=== PATIENT | female | born 1985 | race Caucasian/White ===

== ENCOUNTER 2019-10-12 21:23 | Inpatient (IN) | payer OTHER ==
[2019-10-12] MEDS ORDERED: Misoprostol 200 MCG Tab PO PRN (22:28)
[2019-10-12] MEDS ORDERED: Ondansetron 4 MG/2 ML SDV IVPUSH PRN (22:28)
[2019-10-12] MEDS ORDERED: Sodium Chloride 0.9% 10 ML SDV IV PRN (22:28)
[2019-10-12] MEDS ORDERED: Tranexamic Acid 1,000 MG in Sodium Chloride 0.9% 100 ML IV PRN (22:28)
[2019-10-12] MEDS ORDERED: Methylergonovine 0.2 MG/1 ML Amp IM PRN (22:28)
[2019-10-12] MEDS ORDERED: Nalbuphine 10 MG/1 ML Vial IVPUSH PRN (22:28)
[2019-10-12] MEDS ORDERED: Sodium Chloride 0.9% 10 ML Syringe FLUSH PRN (22:28)
[2019-10-12] MEDS ORDERED: Butorphanol 1 MG/ML SDV IVPUSH PRN (22:28)
[2019-10-12] MEDS ORDERED: Sodium Chloride 0.9% 2.5 ML Syringe FLUSH PRN (22:28)
[2019-10-12] MEDS ORDERED: Water For Irrigation,Sterile 1,000 ML Container IRR PRN (22:28)
[2019-10-12] MEDS ORDERED: Lidocaine 1% 50 ML MDV INJECT PRN (22:28)
[2019-10-12] MEDS ORDERED: Carboprost Tromethamine 250 MCG/1 ML Amp IM PRN (22:28)
[2019-10-12] MEDS ORDERED: Oxytocin/0.9 % Sodium Chloride 30 UNIT/500 ML BAG IV SCH (22:30)
[2019-10-13] MEDS: Lactated Ringers 1,000 ML IV SCH ×3 (01:25→04:20)
--- NOTE | 2019-10-13 02:07 | PCM.LDHP ---
L&D History of Present Illness - General Date of Service: 10/13/19 Admit Problem/Dx: Patient Status Order with Admit Dx/Problem 10/12/19 21:28 Patient Status [ADT] Routine 10/12/19 22:29 Patient Status [ADT] Routine Admission Diagnosis/Problem Admission Diagnosis/Problem 10/13/19 02:00 34yo EDC 10/19/2019 Comes SROM clear 1900, O neg, RI, GBS neg. Source of Information: Patient History Limitations: Reports: No Limitations - History of Present Illness Improves with: Reports: None Worsens with: Reports: None Associated Symptoms: Reports: N - Related Data Allergies/Adverse Reactions: Allergies Allergy/AdvReac Type Severity Reaction Status Date / Time No Known Allergies Allergy Verified 04/28/15 20:51 Home Medications: Home Meds Levonorgestrel [Mirena] 1 device VAG ASDIRECTED 11/11/15 [History] Acetaminophen/HYDROcodone [[place] 325-10 MG] 1 - 2 tab PO Q4H PRN #80 tablet [Rx] traMADol HCl [Ultram] 1 - 2 bag PO Q6HR #60 tablet 11/13/15 [Rx] Past Medical History - Past Health History Medical/Surgical History: Denies Medical/Surgical History 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: Reports: Dermatologic History: Reports: Other (See Below) Other Dermatologic History: Mole removals - Past Surgical History Head Surgeries/Procedures: Reports: None Musculoskeletal Surgical History: Reports: Arthroscopic Knee Other Musculoskeletal Surgeries/Procedures:: ACL Social & Family History - Family History Family Medical History: Noncontributory - Tobacco Use Smoking Status *Q: Never Smoker Second Hand Smoke Exposure: No - Caffeine Use Caffeine Use: Reports: None - Recreational Drug Use Recreational Drug Use: No H&P Review of Systems - Review of Systems: Review Of Systems: See Below General: Reports: No Symptoms HEENT: Reports: No Symptoms Pulmonary: Reports: No Symptoms Cardiovascular: Reports: No Symptoms Gastrointestinal: Reports: No Symptoms Genitourinary: Reports: No Symptoms Musculoskeletal: Reports: No Symptoms Skin: Reports: No Symptoms Psychiatric: Reports: No Symptoms Neurological: Reports: No Symptoms Hematologic/Lymphatic: Reports: No Symptoms Immunologic: Reports: No Symptoms L&D Exam - Exam Exam: See Below - Vital Signs Weight: 78.018 kg - OB Specific Contraction Intensity: Strong Movement: Active Heart Tones: Present Heart Tones per Min: 140 Heart Rate (FHR) Variability: Moderate (6-25 bmp) Presentation: Vertex - Cobb Score Cobb Score Cervix Position: Anterior Cobb Score Consistency: Soft Cobb Score Effacement: >80% Cobb Score Dilation: 3-4 cm Cobb Score 's Station: -2 Cobb Score Total: 10 - Exam General: Alert, Oriented, Cooperative HEENT: Hearing Intact Lungs: Clear to Auscultation, Normal Respiratory Effort Cardiovascular: Regular Rate, Regular Rhythm, Normal S1, Normal S2 GI/Abdominal Exam: Soft, Non-Tender, Pelvis Stable Rectal Exam: Deferred Genitourinary: Normal external exam, Normal bimanual exam, Cervical dilitation, Cervical fluid Back Exam: Normal Inspection, Full Range of Motion Extremities: Normal Inspection, Normal Range of Motion, Non-Tender Skin: Warm, Dry, Intact Neurological: Cranial Nerves Intact, Strength Equal Bilateral, Normal Speech, Normal Tone, Sensation Intact Psychiatric: Alert, Normal Affect, Normal Mood - Patient Data Lab Results Last 24 hrs: Laboratory Results - last 24 hr 10/12/19 10/12/19 10/12/19 Range/Units 21:40 22:46 22:46 WBC 9.15 (4.0-11.0) K/uL RBC 3.96 L (4.30-5.90) M/uL Hgb 12.1 (12.0-16.0) g/dL Hct 36.2 (36.0-46.0) % MCV 91.4 (80.0-98.0) fL MCH 30.6 (27.0-32.0) pg MCHC 33.4 (31.0-37.0) g/dL RDW Std Deviation 44.9 (28.0-62.0) fl RDW Coeff of Enmanuel 14 (11.0-15.0) % Plt Count 156 (150-400) K/uL MPV 12.20 H (7.40-12.00) fL Nucleated RBC % 0.0 /100WBC Nucleated RBCs # 0 K/uL Membrane Rupture POSITIVE Blood Type O NEGATIVE Antibody Screen NEGATIVE Result Diagrams: 10/12/19 22:46 - Problem List (1) Supervision of normal IUP (intrauterine ) in primigravida SNOMED Code(s): 57079704, 333174488, 842436220, 233138192 ICD Code: Z34.00 - ENCNTR FOR SUPRVSN OF NORMAL FIRST , UNSP TRIMESTER Status: Acute Priority: High Current Visit: Yes Qualifiers: Trimester: third trimester Qualified Code(s): Z34.03 - Encounter for supervision of normal first , third trimester Problem List Initiated/Reviewed/Updated: Yes Orders Last 24hrs: Active Orders 24 hr Category Date Time Status Patient Status [ADT] Routine ADT 10/12/19 22:29 Active May Shower [RC] ASDIRECTED Care 10/12/19 22:29 Active Notify Provider [RC] PRN Care 10/12/19 22:29 Active Up ad Mary Lou [RC] ASDIRECTED Care 10/12/19 21:28 Active Up ad Mary Lou [RC] ASDIRECTED Care 10/12/19 22:29 Active Vital Signs [RC] PER UNIT ROUTINE Care 10/12/19 21:28 Active Vital Signs [RC] PER UNIT ROUTINE Care 10/12/19 22:29 Active Regular Diet [DIET] Diet 10/13/19 Breakfast Active RAPID PLASMA REAGIN, QUANT [REF] Routine Lab 10/12/19 22:46 Received UA W/O MICROSCOPIC [URIN] Routine Lab 10/12/19 21:28 Ordered Butorphanol [Stadol] Med 10/12/19 22:28 Active 1 mg IVPUSH Q1H PRN Carboprost Tromethamine [Hemabate DS] Med 10/12/19 22:28 Active 250 mcg IM ASDIRECTED PRN Lactated Ringers [Ringers, Lactated] 1,000 ml Med 10/12/19 22:30 Active IV ASDIRECTED Lidocaine 1% [Xylocaine 1%] Med 10/12/19 22:28 Active 50 ml INJECT ONETIME PRN Methylergonovine [Methergine] Med 10/12/19 22:28 Active 0.2 mg IM ASDIRECTED PRN Nalbuphine [Nubain] Med 10/12/19 22:28 Active 10 mg IVPUSH Q1H PRN Ondansetron [Zofran] Med 10/12/19 22:28 Active 4 mg IVPUSH Q4H PRN Oxytocin/0.9 % Sodium Chloride [Oxytocin 30 Unit/500 ML Med 10/12/19 22:30 Active -NS] 30 unit in 500 ml IV TITRATE Sodium Chloride 0.9% [Normal Saline] Med 10/12/19 22:28 Active 10 ml IV ASDIRECTED PRN Sodium Chloride 0.9% [Saline Flush] Med 10/12/19 22:28 Active 10 ml FLUSH ASDIRECTED PRN Sodium Chloride 0.9% [Saline Flush] Med 10/12/19 22:28 Active 2.5 ml FLUSH ASDIRECTED PRN Tranexamic Acid [Cyklokapron] 1,000 mg Med 10/12/19 22:28 Active Sodium Chloride 0.9% [Normal Saline] 100 ml IV ONETIME Water For Irrigation,Sterile [Sterile Water for Med 10/12/19 22:28 Active Irrigation] 1,000 ml IRR ASDIRECTED PRN miSOPROStol [Cytotec] Med 10/12/19 22:28 Active 200 mcg PO ONETIME PRN Scalp Electrode [WOMSER] Per Unit Routine Oth 10/12/19 22:29 Ordered Peripheral IV Insertion Adult [OM.PC] Routine Oth 10/12/19 22:29 Ordered Resuscitation Status Routine Resus Stat 10/12/19 21:28 Ordered Medication Orders Butorphanol Tartrate (Stadol) 1 mg IVPUSH Q1H PRN PRN Reason: Pain Carboprost Tromethamine (Hemabate Ds) 250 mcg IM ASDIRECTED PRN PRN Reason: Post Hemorrhage Tranexamic Acid 1,000 mg/ (Sodium Chloride) 110 mls @ 660 mls/hr IV ONETIME PRN PRN Reason: Bleeding Lactated Ringer's (Ringers, Lactated) 1,000 mls @ 150 mls/hr IV ASDIRECTED MELISSA Last Admin: 10/13/19 01:25 Dose: 999 mls/hr Oxytocin/Sodium Chloride (Oxytocin 30 Unit/500 Ml-Ns) 30 unit in 500 mls @ 500 mls/hr IV TITRATE MELISSA Lidocaine HCl (Xylocaine 1%) 50 ml INJECT ONETIME PRN PRN Reason: Laceration repair Methylergonovine Maleate (Methergine) 0.2 mg IM ASDIRECTED PRN PRN Reason: Post Hemorrhage Misoprostol (Cytotec) 200 mcg PO ONETIME PRN PRN Reason: Post Hemorrhage Nalbuphine HCl (Nubain) 10 mg IVPUSH Q1H PRN PRN Reason: Pain (severe 7-10) Ondansetron HCl (Zofran) 4 mg IVPUSH Q4H PRN PRN Reason: Nausea/Vomiting Sodium Chloride (Saline Flush) 10 ml FLUSH ASDIRECTED PRN PRN Reason: Keep Vein Open Sodium Chloride (Saline Flush) 2.5 ml FLUSH ASDIRECTED PRN PRN Reason: Keep Vein Open Sodium Chloride (Normal Saline) 10 ml IV ASDIRECTED PRN PRN Reason: IV Use Sterile Water (Sterile Water For Irrigation) 1,000 ml IRR ASDIRECTED PRN PRN Reason: delivery Assessment/Plan Comment:: Labor A: 34yo EDC 10/19/2019 Comes SROM clear 1900, O neg, RI, GBS neg. P: Admit, epidural now, anticipate , Dr Aaron lackey
[2019-10-13] MEDS ORDERED: fentaNYL 100 MCG/2 ML SDV ONE ×2 (02:19→09:46)
[2019-10-13] MEDS ORDERED: Ropivacaine HCl/PF 100 ML ONE ×2 (02:19→09:46)
[2019-10-13] MEDS ORDERED: Terbutaline 1 MG/ML SDV SUBCUT PRN (02:46)
[2019-10-13] MEDS ORDERED: Misoprostol 25 MCG (1/4 of 100 MCG) Tab VAG PRN ×2 (02:46)
--- NOTE | 2019-10-13 02:53 | PCM.PREANE ---
Preanesthetic Assessment - Anesthesia/Transfusion/Family Hx Anesthesia History: No Prior Anesthesia Transfusion History: No Prior Transfusion(s) - Physical Assessment NPO Status Date: 10/13/19 NPO Status Time: 00:05 Height: 1.6 m Weight: 78.018 kg ASA Class: 1 - Lab Values: Laboratory Last Values WBC 9.15 K/uL (4.0-11.0) 10/12/19 22:46 RBC 3.96 M/uL (4.30-5.90) L 10/12/19 22:46 Hgb 12.1 g/dL (12.0-16.0) 10/12/19 22:46 Hct 36.2 % (36.0-46.0) 10/12/19 22:46 MCV 91.4 fL (80.0-98.0) 10/12/19 22:46 MCH 30.6 pg (27.0-32.0) 10/12/19 22:46 MCHC 33.4 g/dL (31.0-37.0) 10/12/19 22:46 RDW Std Deviation 44.9 fl (28.0-62.0) 10/12/19 22:46 RDW Coeff of Enmanuel 14 % (11.0-15.0) 10/12/19 22:46 Plt Count 156 K/uL (150-400) 10/12/19 22:46 MPV 12.20 fL (7.40-12.00) H 10/12/19 22:46 Nucleated RBC % 0.0 /100WBC 10/12/19 22:46 Nucleated RBCs # 0 K/uL 10/12/19 22:46 Membrane Rupture POSITIVE 10/12/19 21:40 Blood Type O NEGATIVE 10/12/19 22:46 Antibody Screen NEGATIVE 10/12/19 22:46 - Allergies Allergies/Adverse Reactions: Allergies Allergy/AdvReac Type Severity Reaction Status Date / Time No Known Allergies Allergy Verified 04/28/15 20:51 - Acknowledgements Anesthesia Type Planned: Epidural Pt an Appropriate Candidate for the Planned Anesthesia: Yes Alternatives and Risks of Anesthesia Discussed w Pt/Guardian: Yes Pt/Guardian Understands and Agrees with Anesthesia Plan: Yes PreAnesthesia Questionnaire - Past Health History Medical/Surgical History: Denies Medical/Surgical History HEENT History: Gastrointestinal History: Reports: GERD [employer]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[employer] History: Reports: Dermatologic History: Reports: Other (See Below) Other Dermatologic History: Mole removals - Past Surgical History Head Surgeries/Procedures: Reports: None Musculoskeletal Surgical History: Reports: Arthroscopic Knee Other Musculoskeletal Surgeries/Procedures:: ACL - SUBSTANCE USE Smoking Status *Q: Never Smoker Second Hand Smoke Exposure: No Recreational Drug Use History: No - HOME MEDS Home Medications: Home Meds Levonorgestrel [Mirena] 1 device VAG ASDIRECTED 11/11/15 [History] Acetaminophen/HYDROcodone [[place] 325-10 MG] 1 - 2 tab PO Q4H PRN #80 tablet [Rx] traMADol HCl [Ultram] 1 - 2 bag PO Q6HR #60 tablet 11/13/15 [Rx] - CURRENT (IN HOUSE) MEDS Current Meds: Current Medications Butorphanol Tartrate (Stadol) 1 mg IVPUSH Q1H PRN PRN Reason: Pain Carboprost Tromethamine (Hemabate Ds) 250 mcg IM ASDIRECTED PRN PRN Reason: Post Hemorrhage Tranexamic Acid 1,000 mg/ (Sodium Chloride) 110 mls @ 660 mls/hr IV ONETIME PRN PRN Reason: Bleeding Lactated Ringer's (Ringers, Lactated) 1,000 mls @ 150 mls/hr IV ASDIRECTED MELISSA Last Admin: 10/13/19 02:20 Dose: 999 mls/hr Oxytocin/Sodium Chloride (Oxytocin 30 Unit/500 Ml-Ns) 30 unit in 500 mls @ 500 mls/hr IV TITRATE MELISSA Oxytocin/Sodium Chloride (Oxytocin 30 Unit/500 Ml-Ns) 30 unit in 500 mls @ 2 mls/hr IV TITRATE MELISSA; Protocol Lidocaine HCl (Xylocaine 1%) 50 ml INJECT ONETIME PRN PRN Reason: Laceration repair Methylergonovine Maleate (Methergine) 0.2 mg IM ASDIRECTED PRN PRN Reason: Post Hemorrhage Misoprostol (Cytotec) 200 mcg PO ONETIME PRN PRN Reason: Post Hemorrhage Misoprostol (Cytotec) 25 mcg VAG ONETIME PRN PRN Reason: Cervical Ripening Misoprostol (Cytotec) 25 mcg VAG Q4H PRN PRN Reason: Cervical Ripening Nalbuphine HCl (Nubain) 10 mg IVPUSH Q1H PRN PRN Reason: Pain (severe 7-10) Ondansetron HCl (Zofran) 4 mg IVPUSH Q4H PRN PRN Reason: Nausea/Vomiting Sodium Chloride (Saline Flush) 10 ml FLUSH ASDIRECTED PRN PRN Reason: Keep Vein Open Sodium Chloride (Saline Flush) 2.5 ml FLUSH ASDIRECTED PRN PRN Reason: Keep Vein Open Sodium Chloride (Normal Saline) 10 ml IV ASDIRECTED PRN PRN Reason: IV Use Sterile Water (Sterile Water For Irrigation) 1,000 ml IRR ASDIRECTED PRN PRN Reason: delivery Terbutaline Sulfate (Brethine) 0.25 mg SUBCUT ASDIRECTED PRN PRN Reason: Tacysystole Discontinued Medications Fentanyl (Sublimaze) Confirm Administered Dose 100 mcg .ROUTE .STK-MED ONE Stop: 10/13/19 02:20 Ropivacaine (Naropin 0.2%) Confirm Administered Dose 100 mls @ as directed .ROUTE .STK-MED ONE Stop: 10/13/19 02:20
--- NOTE | 2019-10-13 02:59 | PCM.PRNOTE ---
- Free Text/Narrative Note: Anesthesia Note: Patient request epidural for labor and delivery. Patient placed in sitting position, L3-L4 midline approach. Chloraprep scrub to lumbar area. Fenestrated drape applied. Epidural space easily achieved using JESSICA technique. JESSICA 4cm and cath thread to 5cm with easy and taped to skin at 9cm with clear sterile adhesive dressing. Patient tolerated well. 0235: Test dose of 3mL 1.5% Lidocaine with epi negative. 0239: Loading dose of 10mL of 0.2% ropvi with 1mcg/mL given in divided doses. 0244: Epidural pump started, same solution at 8mL per hour, 6mL demand bolus every 20mins. Sergio Green CRNA & Michelle Boo, SRNA
[2019-10-13] MEDS ORDERED: Oxytocin/0.9 % Sodium Chloride 30 UNIT/500 ML BAG IV SCH (03:00)
--- NOTE | 2019-10-13 10:14 | PCM.PRNOTE ---
- Free Text/Narrative Note: Anes Note Epidural infusion is completed. A new 100 cc bag of 0.2% ropivicaine with 1 mcg cc fentanyl added was placed. Rate is 8 cc hr with 6 cc q 20 min prn bolus. Guzman reports excelletn analgesia. Time with patient [phone] Sergio Green CRNA
--- NOTE | 2019-10-13 12:15 | PCM.DEL ---
L & D Note - General Info Date of Service: 10/13/19 Mother's Due Date: 10/19/19 - Delivery Note Labor: Spontaneous, Augmented by ARM Delivery Outcome: Livebirth Delivery Method: Spontaneous Vaginal Delivery-Single Delivery Mode: Spontaneous Presentation: Vertex Nuchal Cord: None Anesthesia Type: Epidural Amniotic Fluid Description: Clear Episiotomy Type: None Laceration: None Placenta: Intact, Spontaneous Cord: 3 Vessels Estimated Blood Loss: 100 Resuscitation Needed: No Score 1 min: 8 Score 5 min: 9 Second Stage Interventions: Reports: Pushing, Pulls Own Legs Back Delivery Comments (Free Text/Narrative):: 34yo G1 39 1/7wks follow by me in the clinic. of viable male, head delivered with good pushing, shoulders and body followed easily. Infant placed on mothers abdomen with RN at . Spont cry. Delayed cord clamping, Pitocin to IVF. Cord clamped and cut by Grandma. Cord blood collected. Placenta delivered grossly intact. Bimanual normal. Inspection noted intact perineum. EBL 100cc. APGARS 8/9, Wt: 8lb 10oz. Mother and baby left in stable condition for recovery. Induction Criteria - Augmentation Estimated Pelvis: Reports: Adequate Weight Estimated:: Reports: AGA Reassuring Monitoring Strip: Yes Absence of Tachy Systole: Yes - General Info Date of Service: 10/13/19 Admission Dx/Problem (Free Text): Patient Status Order with Admit Dx/Problem 10/12/19 21:28 Patient Status [ADT] Routine 10/12/19 22:29 Patient Status [ADT] Routine Admission Diagnosis/Problem Admission Diagnosis/Problem 10/13/19 02:00 34yo EDC 10/19/2019 Comes SROM clear 1900, O neg, RI, GBS neg. Functional Status: Reports: Pain Controlled - Review of Systems General: Reports: No Symptoms HEENT: Reports: No Symptoms Pulmonary: Reports: No Symptoms Cardiovascular: Reports: No Symptoms Gastrointestinal: Reports: Nausea Genitourinary: Reports: No Symptoms Musculoskeletal: Reports: No Symptoms Skin: Reports: No Symptoms Neurological: Reports: No Symptoms Psychiatric: Reports: No Symptoms - Patient Data Weight - Most Recent: 78.018 kg Lab Results Last 24 Hours: Laboratory Results - last 24 hr 10/12/19 10/12/19 10/12/19 Range/Units 21:40 22:46 22:46 WBC 9.15 (4.0-11.0) K/uL RBC 3.96 L (4.30-5.90) M/uL Hgb 12.1 (12.0-16.0) g/dL Hct 36.2 (36.0-46.0) % MCV 91.4 (80.0-98.0) fL MCH 30.6 (27.0-32.0) pg MCHC 33.4 (31.0-37.0) g/dL RDW Std Deviation 44.9 (28.0-62.0) fl RDW Coeff of Enmanuel 14 (11.0-15.0) % Plt Count 156 (150-400) K/uL MPV 12.20 H (7.40-12.00) fL Nucleated RBC % 0.0 /100WBC Nucleated RBCs # 0 K/uL Membrane Rupture POSITIVE Blood Type O NEGATIVE Antibody Screen NEGATIVE Med Orders - Current: Current Medications Butorphanol Tartrate (Stadol) 1 mg IVPUSH Q1H PRN PRN Reason: Pain Carboprost Tromethamine (Hemabate Ds) 250 mcg IM ASDIRECTED PRN PRN Reason: Post Hemorrhage Tranexamic Acid 1,000 mg/ (Sodium Chloride) 110 mls @ 660 mls/hr IV ONETIME PRN PRN Reason: Bleeding Lactated Ringer's (Ringers, Lactated) 1,000 mls @ 150 mls/hr IV ASDIRECTED MELISSA Last Admin: 10/13/19 04:20 Dose: 125 mls/hr Oxytocin/Sodium Chloride (Oxytocin 30 Unit/500 Ml-Ns) 30 unit in 500 mls @ 500 mls/hr IV TITRATE MELISSA Oxytocin/Sodium Chloride (Oxytocin 30 Unit/500 Ml-Ns) 30 unit in 500 mls @ 2 mls/hr IV TITRATE MELISSA; Protocol Last Titration: 10/13/19 09:45 Dose: 8 munits/min, 8 mls/hr Lidocaine HCl (Xylocaine 1%) 50 ml INJECT ONETIME PRN PRN Reason: Laceration repair Methylergonovine Maleate (Methergine) 0.2 mg IM ASDIRECTED PRN PRN Reason: Post Hemorrhage Misoprostol (Cytotec) 200 mcg PO ONETIME PRN PRN Reason: Post Hemorrhage Misoprostol (Cytotec) 25 mcg VAG ONETIME PRN PRN Reason: Cervical Ripening Misoprostol (Cytotec) 25 mcg VAG Q4H PRN PRN Reason: Cervical Ripening Nalbuphine HCl (Nubain) 10 mg IVPUSH Q1H PRN PRN Reason: Pain (severe 7-10) Ondansetron HCl (Zofran) 4 mg IVPUSH Q4H PRN PRN Reason: Nausea/Vomiting Sodium Chloride (Saline Flush) 10 ml FLUSH ASDIRECTED PRN PRN Reason: Keep Vein Open Sodium Chloride (Saline Flush) 2.5 ml FLUSH ASDIRECTED PRN PRN Reason: Keep Vein Open Sodium Chloride (Normal Saline) 10 ml IV ASDIRECTED PRN PRN Reason: IV Use Sterile Water (Sterile Water For Irrigation) 1,000 ml IRR ASDIRECTED PRN PRN Reason: delivery Terbutaline Sulfate (Brethine) 0.25 mg SUBCUT ASDIRECTED PRN PRN Reason: Tacysystole Discontinued Medications Fentanyl (Sublimaze) Confirm Administered Dose 100 mcg .ROUTE .STK-MED ONE Stop: 10/13/19 02:20 Fentanyl (Sublimaze) Confirm Administered Dose 100 mcg .ROUTE .STK-MED ONE Stop: 10/13/19 09:47 Ropivacaine (Naropin 0.2%) Confirm Administered Dose 100 mls @ as directed .ROUTE .STK-MED ONE Stop: 10/13/19 02:20 Ropivacaine (Naropin 0.2%) Confirm Administered Dose 100 mls @ as directed .ROUTE .STK-MED ONE Stop: 10/13/19 09:47 - Exam General: Alert, Oriented, Cooperative, No Acute Distress Lungs: Normal Respiratory Effort GI/Abdominal Exam: Soft, Non-Tender, Pelvis Stable (Female) Exam: Normal External Exam, Normal Bimanual Exam, Vaginal Bleeding. No: Vaginal Lesions, Vaginal Tears Back Exam: Normal Inspection Extremities: Normal Inspection, Non-Tender, No Pedal Edema Skin: Warm, Dry, Intact Neurological: No New Focal Deficit, Normal Speech, Normal Tone, Sensation Intact Psy/Mental Status: Alert, Normal Affect, Normal Mood - Problem List & Annotations (1) Supervision of normal IUP (intrauterine ) in primigravida SNOMED Code(s): 99802188, 372595464, 215838073, 884987681 Code(s): Z34.00 - ENCNTR FOR SUPRVSN OF NORMAL FIRST , UNSP TRIMESTER Status: Acute Priority: High Current Visit: Yes Qualifiers: Trimester: third trimester Qualified Code(s): Z34.03 - Encounter for supervision of normal first , third trimester (2) (normal spontaneous vaginal delivery) SNOMED Code(s): 19994730, 889824234 Code(s): O80 - ENCOUNTER FOR FULL-TERM UNCOMPLICATED DELIVERY Status: Acute Priority: High Current Visit: Yes - Problem List Review Problem List Initiated/Reviewed/Updated: Yes - My Orders Last 24 Hours: My Active Orders 10/12/19 21:28 Up ad Mary Lou [RC] ASDIRECTED Vital Signs [RC] PER UNIT ROUTINE UA W/O MICROSCOPIC [URIN] Routine Resuscitation Status Routine 10/12/19 22:28 Butorphanol [Stadol] 1 mg IVPUSH Q1H PRN Carboprost Tromethamine [Hemabate DS] 250 mcg IM ASDIRECTED PRN Lidocaine 1% [Xylocaine 1%] 50 ml INJECT ONETIME PRN Methylergonovine [Methergine] 0.2 mg IM ASDIRECTED PRN Nalbuphine [Nubain] 10 mg IVPUSH Q1H PRN Ondansetron [Zofran] 4 mg IVPUSH Q4H PRN Sodium Chloride 0.9% [Normal Saline] 10 ml IV ASDIRECTED PRN Sodium Chloride 0.9% [Saline Flush] 10 ml FLUSH ASDIRECTED PRN Sodium Chloride 0.9% [Saline Flush] 2.5 ml FLUSH ASDIRECTED PRN Tranexamic Acid [Cyklokapron] 1,000 mg Sodium Chloride 0.9% [Normal Saline] 100 ml IV ONETIME Water For Irrigation,Sterile [Sterile Water for Irrigation] 1,000 ml IRR ASDIRECTED PRN miSOPROStol [Cytotec] 200 mcg PO ONETIME PRN 10/12/19 22:29 Patient Status [ADT] Routine May Shower [RC] ASDIRECTED Notify Provider [RC] PRN Up ad Mary Lou [RC] ASDIRECTED Vital Signs [RC] PER UNIT ROUTINE Scalp Electrode [WOMSER] Per Unit Routine Peripheral IV Insertion Adult [OM.PC] Routine 10/12/19 22:30 Lactated Ringers [Ringers, Lactated] 1,000 ml IV ASDIRECTED Oxytocin/0.9 % Sodium Chloride [Oxytocin 30 Unit/500 ML-NS] 30 unit in 500 ml IV TITRATE 10/12/19 22:46 RAPID PLASMA REAGIN, QUANT [REF] Routine 10/13/19 02:46 Bedrest Bathroom Privileges [RC] ASDIRECTED Communication Order [RC] ASDIRECTED Communication Order [RC] ASDIRECTED Communication Order [RC] ASDIRECTED Notify Provider [RC] PRN Notify Provider [RC] PRN Notify Provider [RC] STAT Oxygen Therapy [RC] ASDIRECTED Vital Signs [RC] PER UNIT ROUTINE Terbutaline [Brethine] 0.25 mg SUBCUT ASDIRECTED PRN miSOPROStol [Cytotec] 25 mcg VAG ONETIME PRN miSOPROStol [Cytotec] 25 mcg VAG Q4H PRN 10/13/19 03:00 Oxytocin/0.9 % Sodium Chloride [Oxytocin 30 Unit/500 ML-NS] 30 unit in 500 ml IV TITRATE Medication Administration Instruction [OM.PC] Q3H 10/13/19 Breakfast Regular Diet [DIET] - Plan Plan:: Labor A: 34yo EDC 10/19/2019 Comes SROM clear 1900, O neg, RI, GBS neg. P: Admit, epidural now, anticipate , Dr Walker updated Delivery A: of viable male, APGARS 8/9, Wt: 8lb 10oz, Intact perineum, EBL 100cc, Stable P: Routine pp plan of care
[2019-10-13] MEDS ORDERED: Witch Hazel Medicated Pads 40/Jar TOP PRN (12:19)
[2019-10-13] MEDS ORDERED: Benzocaine/Menthol 20%-0.5% Spray 78 GM Cannister TOP PRN (12:19)
[2019-10-13] MEDS ORDERED: Acetaminophen 500 MG Tab PO PRN ×2 (12:19)
[2019-10-13] MEDS ORDERED: Docusate Sodium 100 MG Cap PO PRN (12:19)
[2019-10-13] MEDS ORDERED: Lanolin 100% Cream 7 GM Tube TOP PRN (12:19)
[2019-10-13] MEDS ORDERED: Bisacodyl 10 MG Supp RECTAL PRN (12:19)
[2019-10-13] MEDS ORDERED: Ibuprofen 800 MG Tab PO PRN (12:19)
[2019-10-13] MEDS ORDERED: oxyCODONE 5 MG Tab PO PRN (12:19)
[2019-10-13] MEDS ORDERED: Ibuprofen 400 MG Tab PO PRN (12:19)
[2019-10-13 20:15] VITALS: BP 126/75; PULSE 83
--- NOTE | 2019-10-14 09:48 | PCM.DCSUM1 ---
Discharge Summary - Hospital Course Free Text/Narrative:: Discharge home with infant. Follow up in 6 weeks for . Diagnosis: Stroke: No Modified Kade Scale: No Symptoms at All Modified Kade Scale Score: 0 - Discharge Data Discharge Date: 10/14/19 Discharge Disposition: Home, Self-Care 01 Condition: Good - Referral to Home Health Primary Care Physician: Israel Walker MD - Discharge Diagnosis/Problem(s) (1) Supervision of normal IUP (intrauterine ) in primigravida SNOMED Code(s): 21417537, 756228322, 230983854, 570306485 ICD Code: Z34.00 - ENCNTR FOR SUPRVSN OF NORMAL FIRST , UNSP TRIMESTER Status: Acute Priority: High Current Visit: Yes Qualifiers: Trimester: third trimester Qualified Code(s): Z34.03 - Encounter for supervision of normal first , third trimester (2) (normal spontaneous vaginal delivery) SNOMED Code(s): 56430503, 028384704 ICD Code: O80 - ENCOUNTER FOR FULL-TERM UNCOMPLICATED DELIVERY Status: Acute Priority: High Current Visit: Yes - Patient Instructions Diet: Usual Diet as Tolerated Activity: As Tolerated, No Strenuous Activities, Rest and Relax Today Driving: May Drive Today Showering/Bathing: May Shower Notify Provider of: Fever, Increased Pain, Swelling and Redness, Nausea and/or Vomiting - Discharge Plan *PRESCRIPTION DRUG MONITORING PROGRAM REVIEWED*: Not Applicable *COPY OF PRESCRIPTION DRUG MONITORING REPORT IN PATIENT NOMI: Not Applicable Home Medications: Home Meds Levonorgestrel [Mirena] 1 device VAG ASDIRECTED 11/11/15 [History] Acetaminophen/HYDROcodone [[place] 325-10 MG] 1 - 2 tab PO Q4H PRN #80 tablet [Rx] traMADol HCl [Ultram] 1 - 2 bag PO Q6HR #60 tablet 11/13/15 [Rx] Oxygen Therapy Mode: Room Air Referrals: [facility] [Outside] Nancy Eason CNM [Mid-] - 11/24/19 1:30 pm (Follow up appt with Nancy 11/24 at 1:30 pm ) - Discharge Summary/Plan Comment DC Time >30 min.: Yes - General Info Date of Service: 10/14/19 Admission Dx/Problem (Free Text: Patient Status Order with Admit Dx/Problem 10/12/19 21:28 Patient Status [ADT] Routine 10/12/19 22:29 Patient Status [ADT] Routine Admission Diagnosis/Problem Admission Diagnosis/Problem 10/13/19 02:00 34yo EDC 10/19/2019 Comes SROM clear 1900, O neg, RI, GBS neg. Functional Status: Reports: Pain Controlled, Tolerating Diet, Ambulating, Urinating - Review of Systems General: Reports: No Symptoms HEENT: Reports: No Symptoms Pulmonary: Reports: No Symptoms Cardiovascular: Reports: No Symptoms Gastrointestinal: Reports: No Symptoms Genitourinary: Reports: No Symptoms Musculoskeletal: Reports: No Symptoms Skin: Reports: No Symptoms Neurological: Reports: No Symptoms Psychiatric: Reports: No Symptoms - Patient Data Vitals - Most Recent: Last Vital Signs Temp 36.7 C 10/13/19 20:14 Pulse 83 10/13/19 20:14 Resp 18 10/13/19 20:14 BP 126/75 10/13/19 20:14 Pulse Ox 97 10/13/19 20:14 Weight - Most Recent: 78.018 kg I&O - Last 24 hours: Intake & Output 10/13/19 10/14/19 10/14/19 22:59 06:59 14:59 Intake Total 2 Balance 2 Lab Results - Last 24 hrs: Laboratory Results - last 24 hr 10/13/19 Range/Units 13:35 Screen NEGATIVE (NEGATIVE) RhIG Candidate? YES Rhogam Indicated YES, BABY RH POS H Med Orders - Current: Current Medications Acetaminophen (Tylenol Extra Strength) 500 mg PO Q4H PRN PRN Reason: Pain Acetaminophen (Tylenol Extra Strength) 1,000 mg PO Q4H PRN PRN Reason: Pain Benzocaine/Menthol (Dermoplast Pain Relief 20%-0.5% Beulah) 78 gm TOP ASDIRECTED PRN PRN Reason: Perineal Comfort Measure Bisacodyl (Dulcolax) 10 mg RECTAL ONETIME PRN PRN Reason: Constipation Docusate Sodium (Colace) 100 mg PO BID PRN PRN Reason: Constipation Last Admin: 10/13/19 21:10 Dose: 100 mg Emollient Ointment (Lansinoh Hpa) 0 gm TOP ASDIRECTED PRN PRN Reason: Sore Nipples Ibuprofen (Motrin) 400 mg PO Q4H PRN PRN Reason: Pain Ibuprofen (Motrin) 800 mg PO Q6H PRN PRN Reason: Pain Last Admin: 10/13/19 21:10 Dose: 800 mg Oxycodone HCl (Oxycodone) 5 mg PO Q2H PRN PRN Reason: Pain Witch Renee (Tucks) 1 pad TOP ASDIRECTED PRN PRN Reason: comfort care Discontinued Medications Butorphanol Tartrate (Stadol) 1 mg IVPUSH Q1H PRN PRN Reason: Pain Carboprost Tromethamine (Hemabate Ds) 250 mcg IM ASDIRECTED PRN PRN Reason: Post Hemorrhage Fentanyl (Sublimaze) Confirm Administered Dose 100 mcg .ROUTE .STK-MED ONE Stop: 10/13/19 02:20 Fentanyl (Sublimaze) Confirm Administered Dose 100 mcg .ROUTE .STK-MED ONE Stop: 10/13/19 09:47 Tranexamic Acid 1,000 mg/ (Sodium Chloride) 110 mls @ 660 mls/hr IV ONETIME PRN PRN Reason: Bleeding Lactated Ringer's (Ringers, Lactated) 1,000 mls @ 150 mls/hr IV ASDIRECTED MELISSA Last Admin: 10/13/19 04:20 Dose: 125 mls/hr Oxytocin/Sodium Chloride (Oxytocin 30 Unit/500 Ml-Ns) 30 unit in 500 mls @ 500 mls/hr IV TITRATE MELISSA Ropivacaine (Naropin 0.2%) Confirm Administered Dose 100 mls @ as directed .ROUTE .STK-MED ONE Stop: 10/13/19 02:20 Oxytocin/Sodium Chloride (Oxytocin 30 Unit/500 Ml-Ns) 30 unit in 500 mls @ 2 mls/hr IV TITRATE MELISSA; Protocol Last Titration: 10/13/19 11:48 Dose: 999 munits/min, 999 mls/hr Ropivacaine (Naropin 0.2%) Confirm Administered Dose 100 mls @ as directed .ROUTE .STK-MED ONE Stop: 10/13/19 09:47 Lidocaine HCl (Xylocaine 1%) 50 ml INJECT ONETIME PRN PRN Reason: Laceration repair Methylergonovine Maleate (Methergine) 0.2 mg IM ASDIRECTED PRN PRN Reason: Post Hemorrhage Misoprostol (Cytotec) 200 mcg PO ONETIME PRN PRN Reason: Post Hemorrhage Misoprostol (Cytotec) 25 mcg VAG ONETIME PRN PRN Reason: Cervical Ripening Misoprostol (Cytotec) 25 mcg VAG Q4H PRN PRN Reason: Cervical Ripening Nalbuphine HCl (Nubain) 10 mg IVPUSH Q1H PRN PRN Reason: Pain (severe 7-10) Ondansetron HCl (Zofran) 4 mg IVPUSH Q4H PRN PRN Reason: Nausea/Vomiting Sodium Chloride (Saline Flush) 10 ml FLUSH ASDIRECTED PRN PRN Reason: Keep Vein Open Sodium Chloride (Saline Flush) 2.5 ml FLUSH ASDIRECTED PRN PRN Reason: Keep Vein Open Sodium Chloride (Normal Saline) 10 ml IV ASDIRECTED PRN PRN Reason: IV Use Sterile Water (Sterile Water For Irrigation) 1,000 ml IRR ASDIRECTED PRN PRN Reason: delivery Terbutaline Sulfate (Brethine) 0.25 mg SUBCUT ASDIRECTED PRN PRN Reason: Tacysystole - Exam General: Reports: Alert, Oriented, Cooperative, No Acute Distress Lungs: Reports: Normal Respiratory Effort GI/Abdominal Exam: Soft, Non-Tender, Pelvis Stable (Female) Exam: Deferred, Vaginal Bleeding Rectal (Female) Exam: Deferred Back Exam: Reports: Normal Inspection, Full Range of Motion Extremities: Normal Inspection, Non-Tender, No Pedal Edema Skin: Reports: Warm, Dry, Intact Neurological: Reports: No New Focal Deficit, Normal Speech, Normal Tone, Strength Equal Bilateral, Sensation Intact Psy/Mental Status: Reports: Alert, Normal Affect, Normal Mood
--- NOTE | 2019-10-14 09:55 | PCM48HPAN ---
Post Anesthesia Note - EVALUATION WITHIN 48HRS OF ANESTHETIC Vital Signs in Normal Range: Yes Patient Participated in Evaluation: Yes Respiratory Function Stable: Yes Airway Patent: Yes Cardiovascular Function Stable: Yes Hydration Status Stable: Yes Pain Control Satisfactory: Yes Nausea and Vomiting Control Satisfactory: Yes Mental Status Recovered: Yes Vital Signs: Last Vital Signs Temp 36.7 C 10/13/19 20:14 Pulse 83 10/13/19 20:14 Resp 18 10/13/19 20:14 BP 126/75 10/13/19 20:14 Pulse Ox 97 10/13/19 20:14 - COMMENTS/OBSERVATIONS Free Text/Narrative:: No complaints related to anesthesia.
== END 2019-10-14 13:10 | disposition home or self-care (01) | DRG 807 ==
LOC: MW.OBCHECK 21:23 → MW.OB 21:30 → MW.OBCHECK 22:29 → MW.OB 22:29 → OBSVTOIN 10-13 11:47 → MW.OB 10-13 17:22 → UNDODISOB 10-14 13:10
PROVIDERS: ADMIT Obstetrics & Gynecology; ATTEND Advanced Practice Midwife
PROC: 10E0XZZ Delivery of Products of Conception, External Approach (ICD-10-PCS; principal; 2019-10-13)
PROC: 6A550ZT Pheresis of Cord Blood Stem Cells, Single (ICD-10-PCS; principal; 2019-10-13)
PROC: 10907ZC Drainage of Amniotic Fluid, Therapeutic from Products of Conception, Via Natural or Artificial Opening (ICD-10-PCS; principal; 2019-10-13)
PROC: 3E0R3BZ Introduction of Anesthetic Agent into Spinal Canal, Percutaneous Approach (ICD-10-PCS; 2019-10-13)
PROC: 00HU33Z Insertion of Infusion Device into Spinal Canal, Percutaneous Approach (ICD-10-PCS; 2019-10-13)
DX: O80 Encounter for full-term uncomplicated delivery (principal); Z37.0 Single live birth; Z3A.39 39 weeks gestation of pregnancy
CPT/HCPCS: 01967; 36415; 51702; 59025; 59409; 84112; 85027; 85460; 86593; 86850; 86900; 86901; A9270-GY; J2590; J2792; J2795; J3010; J7120

== ENCOUNTER 2019-11-12 20:32 | Emergency (ER) | payer OTHER ==
--- NOTE | 2019-11-12 21:07 | EDM.PDOC ---
ED HPI GENERAL MEDICAL PROBLEM - General Chief Complaint: Skin Complaint Stated Complaint: RASH Time Seen by Provider: 11/12/19 20:52 - History of Present Illness INITIAL COMMENTS - FREE TEXT/NARRATIVE: HISTORY AND PHYSICAL: History of present illness: She is a 34-year-old female who is breast-feeding her 4-week-old infant and presents with a history of seeing Nancy Eason in the clinic and being placed on antibiotics, the name of which she does not recall but which she is taking twice a day, for mastitis and she is concerned that it is worsening. The patient has taken 5 doses of antibiotics which she takes twice a day and she says that tonight she noticed some bubbling of the skin in the medial aspect of her breast and went on the Internet and saw pictures and was very worried so came here to the ED. She says that her milk flow is good from that breast and she has no systemic complaints of fever chills chest pain shortness of breath vomiting or abdominal issues. She says she has just been using [id number] medication for pain and she says the pain seems somewhat worse this evening. She says that the area of redness that was present in the clinic when she was seen by the provider seems to be worsening as well but she is more concerned about the bubbling and skin changes that she seeing and is worried that she is going to start draining fluid. Absolutely has not had any fever at home Review of systems: As per history of present illness and below otherwise all systems reviewed and negative. Past medical history: As per history of present illness and as reviewed below otherwise noncontributory. Surgical history: As per history of present illness and as reviewed below otherwise noncontributory. Social history: No reported history of drug or alcohol abuse. Family history: As per history of present illness and as reviewed below otherwise noncontributory. Physical exam: General: Well-developed well-nourished female who is nontoxic and vital signs are noted by me HEENT: Atraumatic, normocephalic, negative for conjunctival pallor or scleral icterus, mucous membranes moist, throat clear, neck supple, nontender, trachea midline. Lungs: Clear to auscultation, breath sounds equal bilaterally, chest nontender. Left breast: There is an ill-defined area of erythema that originates at the 6: 30 position on the breast extending up to the 11 PM position and width in this at the center of proximally 9:00 there is a 3 x 3 firm indurated area with some superficial skin changes and excoriations seen but no drainage and there is no fluctuance of this area. There is mild tenderness with palpation of the entire region but there is no nipple drainage or discharge. There is no axillary or supraclavicular lymphadenopathy. Heart: S1S2, regular rate and rhythm no overt murmurs Abdomen: Soft, nondistended, nontender. NAbS Pelvis: Stable nontender. Genitourinary: Deferred. Rectal: Deferred. Extremities: Atraumatic, negative for cords or calf pain. Neurovascular unremarkable. Neuro: Awake, alert, oriented. Cranial nerves II through XII unremarkable. Cerebellum unremarkable. Motor and sensory unremarkable throughout. Exam nonfocal. Diagnostics: Breast ultrasound Therapeutics: She declined pain medication, the entire area of erythema was marked by me, vancomycin 2355: As discussed with Nancy Eason who agrees to give a dose of vancomycin and I have advised the patient that she needs to pump and discard as the antibiotics are questionable and breast-feeding although I have given them the past with Dr. Yadav for breast abscesses. She is to call the clinic in the morning and be seen by Nancy Eason tomorrow for further care and evaluation and she is to continue her antibiotics. Impression: Mastitis with poor response to outpatient therapy, possible early abscess formation Definitive disposition and diagnosis as appropriate pending reevaluation and review of above. 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: Dermatologic History: Reports: Other (See Below) Other Dermatologic History: Mole removals - Infectious Disease History Infectious Disease History: Reports: None - Past Surgical History Head Surgeries/Procedures: Reports: None Musculoskeletal Surgical History: Reports: Arthroscopic Knee Other Musculoskeletal Surgeries/Procedures:: ACL Social & Family History - Family History Family Medical History: Noncontributory - Tobacco Use Smoking Status *Q: Never Smoker Second Hand Smoke Exposure: No - Caffeine Use Caffeine Use: Reports: Coffee - Recreational Drug Use Recreational Drug Use: No ED ROS GENERAL - Review of Systems Review Of Systems: Comprehensive ROS is negative, except as noted in HPI. ED EXAM, SKIN/RASH Exam: See Below (see dictation) Course - Vital Signs Last Recorded V/S: Last Vital Signs Temp 36.6 C 11/12/19 20:40 Pulse 82 11/12/19 20:40 Resp 16 11/12/19 20:40 BP 116/78 11/12/19 20:40 Pulse Ox 96 11/12/19 20:40 - Orders/Labs/Meds Orders: Active Orders 24 hr Category Date Time Status Sodium Chloride 0.9% [Saline Flush] Med 11/12/19 22:58 Active 10 ml FLUSH ASDIRECTED PRN Sodium Chloride 0.9% [Saline Flush] Med 11/12/19 22:58 Active 2.5 ml FLUSH ASDIRECTED PRN Vancomycin 1 gm Med 11/12/19 22:58 Active Sodium Chloride 0.9% [Normal Saline (AdvBag)] 250 ml IV ONETIME Saline Lock Insert [OM.PC] Stat Oth 11/12/19 22:58 Ordered Medication Orders Vancomycin HCl 1 gm/ Sodium (Chloride) 250 mls @ 166 mls/hr IV ONETIME ONE Stop: 11/13/19 00:28 Sodium Chloride (Saline Flush) 10 ml FLUSH ASDIRECTED PRN PRN Reason: Keep Vein Open Sodium Chloride (Saline Flush) 2.5 ml FLUSH ASDIRECTED PRN PRN Reason: Keep Vein Open Meds: Medications Generic Name Dose Route Start Last Admin Trade Name Freq PRN Reason Stop Dose Admin Vancomycin HCl 1 gm/ Sodium 250 mls @ 166 mls/hr 11/12/19 22:58 Chloride IV 11/13/19 00:28 ONETIME ONE Sodium Chloride 10 ml 11/12/19 22:58 Saline Flush FLUSH ASDIRECTED PRN Keep Vein Open Sodium Chloride 2.5 ml 11/12/19 22:58 Saline Flush FLUSH ASDIRECTED PRN Keep Vein Open Departure - Departure Time of Disposition: 23:03 Disposition: Home, Self-Care 01 Condition: Good Clinical Impression: Mastitis - Discharge Information Referrals: PCP,None [Primary Care Provider] - Forms: ED Department Discharge Additional Instructions: The following information is given to patients seen in the emergency department who are being discharged to home. This information is to outline your options for follow-up care. We provide all patients seen in our emergency department with a follow-up referral. The need for follow-up, as well as the timing and circumstances, are variable depending upon the specifics of your emergency department visit. If you don't have a primary care physician on staff, we will provide you with a referral. We always advise you to contact your personal physician following an emergency department visit to inform them of the circumstance of the visit and for follow-up with them and/or the need for any referrals to a consulting specialist. The emergency department will also refer you to a specialist when appropriate. This referral assures that you have the opportunity for followup care with a specialist. All of these measure are taken in an effort to provide you with optimal care, which includes your followup. Under all circumstances we always encourage you to contact your private physician who remains a resource for coordinating your care. When calling for followup care, please make the office aware that this follow-up is from your recent emergency room visit. If for any reason you are refused follow-up, please contact the [facility] emergency department at and ask to speak to the emergency department charge nurse. [facility] Primary care-Women's [facility] [address] [address] Please call and make an appointment to see Nancy Eason in the clinic in the morning. Continue to monitor your symptoms and take the antibiotics you have at home. Return to ER as needed and as discussed. Please pump and discard breast milk for the next 12 hours Sepsis Event Note - Evaluation Sepsis Screening Result: No Definite Risk - Focused Exam Vital Signs: Vital Signs Temp Pulse Resp BP Pulse Ox 11/12/19 20:40 36.6 C 82 16 116/78 96 Date Exam was Performed: 11/12/19 Time Exam was Performed: 23:02 - My Orders Last 24 Hours: My Active Orders 11/12/19 22:58 Sodium Chloride 0.9% [Saline Flush] 10 ml FLUSH ASDIRECTED PRN Sodium Chloride 0.9% [Saline Flush] 2.5 ml FLUSH ASDIRECTED PRN Vancomycin 1 gm Sodium Chloride 0.9% [Normal Saline (AdvBag)] 250 ml IV ONETIME Saline Lock Insert [OM.PC] Stat - Assessment/Plan Last 24 Hours: My Active Orders 11/12/19 22:58 Sodium Chloride 0.9% [Saline Flush] 10 ml FLUSH ASDIRECTED PRN Sodium Chloride 0.9% [Saline Flush] 2.5 ml FLUSH ASDIRECTED PRN Vancomycin 1 gm Sodium Chloride 0.9% [Normal Saline (AdvBag)] 250 ml IV ONETIME Saline Lock Insert [OM.PC] Stat
--- NOTE | 2019-11-12 22:31 | US ---
--- Preliminary Report --- History: Patient with history of mastitis with redness of the left inner breast. On antibiotics for 3 days. Comparison: None available In the 9 o`clock left breast 2 centimeters from the nipple there is a heterogeneous area of decreased echogenicity with increased color Doppler flow measuring approximately 2.1 centimeters in diameter and 1.6 centimeters in depth. I am concerned that this is an early abscess. A distinct abscess wall is not evident at this time. Incidental note is made of a small simple cyst measuring 0.5 centimeters in diameter in the 7 o`clock position 2 centimeters from the nipple. A bilobed simple cyst measuring 0.7 centimeters in greatest diameter is seen in the 3 o`clock left breast 4 centimeters from the nipple. A simple cyst measuring 0.6 centimeters in diameter is seen in the 9 o`clock left breast 6 centimeters from the nipple. Impression: Possible early abscess measuring up to 2.1 centimeters in diameter located in the 9 o`clock left breast 2 centimeters from the nipple. Several small simple cysts seen scattered throughout the left breast. Dictated by Richard Osborn MD @ 11/12/2019 10:28:53 PM Preliminary Report by Dr. Richard Osborn @ Nov 12 2019 10:28PM --- Preliminary Report ---
[2019-11-12] MEDS ORDERED: Sodium Chloride 0.9% 10 ML Syringe FLUSH PRN (22:58)
[2019-11-12] MEDS ORDERED: Sodium Chloride 0.9% 2.5 ML Syringe FLUSH PRN (22:58)
[2019-11-13 00:40] VITALS: BP 112/63; PULSE 79
== END 2019-11-13 00:35 | disposition home or self-care (01) ==
LOC: MW.ED 20:32
DX: O91.22 Nonpurulent mastitis associated with the puerperium (principal)
CPT/HCPCS: 76642; 96365; 99283; J3370; J7050; 99284

== ENCOUNTER 2022-10-16 13:45 | Inpatient (IN) | payer OTHER ==
[2022-10-16] MEDS: Lactated Ringers 1,000 ML IV SCH ×2 (14:00→19:57)
[2022-10-16] MEDS ORDERED: Misoprostol 200 MCG Tab PO PRN (14:15)
[2022-10-16] MEDS ORDERED: Sodium Chloride 0.9% 20 ML SDV IV PRN (14:15)
[2022-10-16] MEDS ORDERED: Carboprost Tromethamine 250 MCG/1 ML Amp IM PRN (14:15)
[2022-10-16] MEDS ORDERED: Butorphanol 1 MG/ML SDV IVPUSH PRN (14:15)
[2022-10-16] MEDS ORDERED: Terbutaline 1 MG/ML SDV SUBCUT PRN (14:15)
[2022-10-16] MEDS ORDERED: Methylergonovine 0.2 MG/1 ML Amp IM PRN (14:15)
[2022-10-16] MEDS ORDERED: Tranexamic Acid 1,000 MG in Sodium Chloride 0.9% 100 ML IV PRN (14:15)
[2022-10-16] MEDS ORDERED: Sodium Chloride 0.9% 10 ML Syringe FLUSH PRN (14:15)
[2022-10-16] MEDS ORDERED: Water For Irrigation,Sterile 1,000 ML Container IRR PRN (14:15)
[2022-10-16] MEDS ORDERED: Oxytocin/0.9 % Sodium Chloride 30 UNIT/500 ML BAG IV SCH ×2 (14:15)
[2022-10-16] MEDS ORDERED: Sodium Chloride 0.9% 2.5 ML Syringe FLUSH PRN (14:15)
[2022-10-16] MEDS ORDERED: Lidocaine 1% 50 ML MDV INJECT PRN (14:15)
[2022-10-16] MEDS ORDERED: Misoprostol 25 MCG (1/4 of 100 MCG) Tab VAG PRN ×2 (14:15)
[2022-10-16] MEDS ORDERED: Phenylephrine HCl In 0.9% NaCl 1 MG/10 ML Vial IVPUSH PRN (15:21)
[2022-10-16] MEDS ORDERED: ePHEDrine 50 MG/ML SDV IVPUSH PRN ×2 (15:21)
[2022-10-16] MEDS ORDERED: Phenylephrine HCl In 0.9% NaCl 1 MG/10 ML Vial IVPUSH SCH (15:30)
[2022-10-16] MEDS ORDERED: Ropivacaine HCl/PF 400 MG in Premix Bag 1 BAG EPIDUR SCH (15:30)
[2022-10-16] MEDS ORDERED: Phenylephrine HCl In 0.9% NaCl 1 MG/10 ML Vial ONE (20:53)
[2022-10-16] MEDS ORDERED: Citric Acid/Sodium Citrate Solution 30 ML Cup PO ONE (21:42)
[2022-10-16] MEDS ORDERED: Lidocaine 2% with EPINEPHrine 1:200,000 20 ML SDV ONE (22:54)
[2022-10-17] MEDS ORDERED: Docusate Sodium 100 MG Cap PO PRN (00:31)
[2022-10-17] MEDS ORDERED: Ibuprofen 400 MG Tab PO PRN (00:31)
[2022-10-17] MEDS ORDERED: Lanolin 100% Cream 7 GM Tube TOP PRN (00:31)
[2022-10-17] MEDS ORDERED: Benzocaine/Menthol 20%-0.5% Spray 78 GM Cannister TOP PRN (00:31)
[2022-10-17] MEDS ORDERED: Bisacodyl 10 MG Supp RECTAL PRN (00:31)
[2022-10-17] MEDS ORDERED: Witch Hazel Medicated Pads 40/Jar TOP PRN (00:31)
[2022-10-17] MEDS ORDERED: Tranexamic Acid 1,000 MG in Sodium Chloride 0.9% 100 ML IV PRN (00:31)
[2022-10-17] MEDS ORDERED: Methylergonovine 0.2 MG/1 ML Amp IM PRN (00:31)
[2022-10-17] MEDS ORDERED: Ibuprofen 800 MG Tab PO PRN (00:31)
[2022-10-17] MEDS ORDERED: Acetaminophen 500 MG Tab PO PRN ×2 (00:31)
[2022-10-18 10:02] VITALS: BP 126/81; PULSE 68
== END 2022-10-18 14:45 | disposition home or self-care (01) | DRG 807 ==
LOC: MW.OB 13:45 → OBSVTOIN 23:54 → MW.OB 10-17 02:30
PROVIDERS: ADMIT Obstetrics & Gynecology; ATTEND Obstetrics & Gynecology
PROC: 10E0XZZ Delivery of Products of Conception, External Approach (ICD-10-PCS; principal; 2022-10-16)
PROC: 3E0P7VZ Introduction of Hormone into Female Reproductive, Via Natural or Artificial Opening (ICD-10-PCS; 2022-10-16)
PROC: 3E033VJ Introduction of Other Hormone into Peripheral Vein, Percutaneous Approach (ICD-10-PCS; 2022-10-16)
PROC: 3E0R3BZ Introduction of Anesthetic Agent into Spinal Canal, Percutaneous Approach (ICD-10-PCS; 2022-10-16)
PROC: 00HU33Z Insertion of Infusion Device into Spinal Canal, Percutaneous Approach (ICD-10-PCS; 2022-10-16)
DX: O13.4 Gestational [pregnancy-induced] hypertension without significant proteinuria, complicating childbirth (principal); Z37.0 Single live birth; Z3A.39 39 weeks gestation of pregnancy; O99.62 Diseases of the digestive system complicating childbirth; K21.9 Gastro-esophageal reflux disease without esophagitis; Z20.822 Contact with and (suspected) exposure to COVID-19
CPT/HCPCS: 01967; 36415; 51702; 59025; 59409; 82803; 85014; 85018; 85027; 86592; 86850; 86900; 86901; A9270-GY; J2590; J7120; U0002